=== PATIENT | female | born 1960 | race Caucasian/White ===

== ENCOUNTER 2019-12-11 12:50 | Outpatient (REF) | payer OTHER, SELFPAY ==
[2019-12-11 14:52] LABS: Alanine Aminotransferase 16 U/L (0-31); Albumin Level 4.1 g/dL (3.5-5.0); Alkaline Phosphatase 76 U/L (39-117); Aspartate Amino Transferase 15 U/L (5-31); Bilirubin Total 0.5 mg/dL (0.0-1.0); Blood Urea Nitrogen 15 mg/dL (9-16); Calcium 9.2 mg/dL (8.4-10.2); Estimated Glomerular Filt Rate 50; Glucose Random 74 mg/dL (60-115); Total Protein 6.2 g/dL (6.5-8.0)
[2019-12-11 15:02] LABS: Anion Gap 14 (12-20); Carbon Dioxide 23 mmol/L (22-29); Chloride 109 mmol/L (96-108); Potassium 4.2 mmol/l (3.3-5.1); Sodium 142 mmol/L (135-145)
== END 2019-12-11 12:51 | disposition home or self-care (01) ==
LOC: HO.LAB 12:50
PROVIDERS: PCP Internal Medicine; Visit Provider Internal Medicine
DX: I12.9 Hypertensive chronic kidney disease with stage 1 through stage 4 chronic kidney disease, or unspecified chronic kidney disease (principal); E78.00 Pure hypercholesterolemia, unspecified; F31.81 Bipolar II disorder; F17.200 Nicotine dependence, unspecified, uncomplicated
CPT/HCPCS: 36415; 80053

== ENCOUNTER 2020-02-28 07:30 | Day surgery (SDC) | payer OTHER, SELFPAY ==
[2020-02-21 13:20] VITALS: BMI 28.9
--- NOTE | 2020-02-26 13:16 | HO.ANESPROP2 ---
Documented by User: Sana Brannon 02/26/20 13:16 HPI - Anesthesia Eval Consult details Narrative: 60yo F for Colonoscopy PMFSH Past Medical History Medical History Asthma Chronic renal insufficiency Elevated cholesterol History of diverticulitis HTN (hypertension) Hx of malignant neoplasm of skin Hx-TIA (transient ischemic attack) Osteoarthritis Overactive bladder Smoker Surgical History Surgical History H/O LEEP Hx of colonoscopy Hx of hemorrhoidectomy Hx of tubal ligation Social History Social History Smoking Status: Current every day smoker Cigarettes Per Day: 4 Years Smoked: 48 Patient Given Instructions on How to Stop Smoking: Yes Date Education Initiated: 02/21/20 Use of substances other than those prescribed or required for medical reasons: No Advance Directives: No Advance Directives Information Provided: No Advance Directives on File: No Meds Allergies Allergy/AdvReac Type Severity Reaction Status Date / Time No Known Allergies Allergy Verified 02/21/20 13:13 [No Known Allergies*] Home Medications Medication Instructions Recorded Confirmed Type acetaminophen [Arthritis Pain 1 tab PO TID PRN 02/21/20 02/21/20 History Relief (acetam)] aripiprazole 1 tab PO DAILY 02/21/20 02/21/20 History atorvastatin 1 tab PO BEDTIME 02/21/20 02/21/20 History bisacodyl 2 tab PO DIRECTED 02/21/20 02/21/20 History bupropion HCl 1 tab PO BID 02/21/20 02/21/20 History cholecalciferol (vitamin D3) 1 tab PO DAILY 02/21/20 02/21/20 History fluticasone propionate 1 spray INTRANASAL BID 02/21/20 02/21/20 History lisinopril 1 tab PO DAILY 02/21/20 02/21/20 History polyethylene glycol 3350 PO 02/21/20 History tolterodine 1 cap PO DAILY 02/21/20 02/21/20 History Exam Exam Date and Time: February 26, 2020 1316 Height,Weight and Vital Signs: Height 5 ft 5 in Weight 78.925 kg Assessment and Plan Assessment Anesthesia Assessment: Chart Reviewed Documented by User: Kelly Martellashawn 02/28/20 08:05 [facility], [facility] Past Medical History Medical History Asthma Chronic renal insufficiency Elevated cholesterol History of diverticulitis HTN (hypertension) Hx of malignant neoplasm of skin Hx-TIA (transient ischemic attack) Osteoarthritis Overactive bladder Smoker Surgical History Surgical History H/O LEEP Hx of colonoscopy Hx of hemorrhoidectomy Hx of tubal ligation Social History Social History Smoking Status: Current every day smoker Cigarettes Per Day: 4 Years Smoked: 48 Patient Given Instructions on How to Stop Smoking: Yes Date Education Initiated: 02/21/20 Use of substances other than those prescribed or required for medical reasons: No Advance Directives: No Advance Directives Information Provided: No Advance Directives on File: No Meds Allergies Allergy/AdvReac Type Severity Reaction Status Date / Time No Known Allergies Allergy Verified 02/21/20 13:13 [No Known Allergies*] Home Medications Medication Instructions Recorded Confirmed Type acetaminophen [Arthritis Pain 1 tab PO TID PRN 02/21/20 02/21/20 History Relief (acetam)] aripiprazole 1 tab PO DAILY 02/21/20 02/21/20 History atorvastatin 1 tab PO BEDTIME 02/21/20 02/21/20 History bisacodyl 2 tab PO DIRECTED 02/21/20 02/21/20 History bupropion HCl 1 tab PO BID 02/21/20 02/21/20 History cholecalciferol (vitamin D3) 1 tab PO DAILY 02/21/20 02/21/20 History fluticasone propionate 1 spray INTRANASAL BID 02/21/20 02/21/20 History lisinopril 1 tab PO DAILY 02/21/20 02/21/20 History polyethylene glycol 3350 PO 02/21/20 History tolterodine 1 cap PO DAILY 02/21/20 02/21/20 History Exam Airway Mallampati Class: II (Crowns upper front) TM Dist: >3cm Neck ROM: Full Partial: Upper Heart: RrR Lungs: CTA BL Assessment and Plan Assessment Anesthesia Assessment: Anesthesia Plan Discussed and Chart Reviewed Final Anesthetic Review NPO: Yes ASA Class: II Final Preanesthetic Review: No Changes in Pt Med Stat and Consent Obtained/Reviewed Patient Risk: Intermediate Procedure Risk: Intermediate Anesthetic Plan Anesthetic Plan: MAC: Disposition: Standard PACU
[2020-02-28 08:02] VITALS: BP 117/71; PULSE 65; RESP 16; TEMP 36.3; O2SAT 100; BMI 28.9
[2020-02-28] MEDS: Lactated Ringers 1,000 ML 100 ML IVCONT (08:24)
[2020-02-28 09:41] VITALS: BP 119/65; PULSE 68; RESP 12; TEMP 36.9; O2SAT 97
--- NOTE | 2020-02-28 09:41 | PM.OP ---
Brief Operative Note Date of Service: 02/28/20 Pre-op diagnosis: Screening Post-op diagnosis: other (Colon polyps, Diverticulosis) Procedure: Colonoscopy to cecum and TI with snare polypectomy x 2 of Ileocecal Valve polyps--specimens were not recovered for pathology Surgeon: Bennie Thompson Anesthesia: MAC Estimated blood loss (mL): 2.0 Pathology: none sent Condition: stable Disposition: PACU
[2020-02-28 09:56] VITALS: BP 130/78; PULSE 67; RESP 16; O2SAT 100
[2020-02-28 10:10] VITALS: BP 121/87; PULSE 58; RESP 16; TEMP 36.9; O2SAT 100
--- NOTE | 2020-02-28 10:24 | HO.POSTANES ---
Post Anesthesia Evaluation Post Anesthesia Evaluation Vital Signs: Vital Signs Temp Pulse Resp BP Pulse Ox 02/28/20 10:10 98.5 F 58 16 121/87 100 02/28/20 09:56 67 16 130/78 100 02/28/20 09:41 98.5 F 68 12 119/65 97 02/28/20 08:02 97.3 F 65 16 117/71 100 Anesthesia: Monitored Mental Status: Awake Pain Control: Satisfactory Nausea/Vomiting: None Hydration: Adequate Anesthesia-Related Issues: No Anes. Related Issues
--- NOTE | 2020-02-28 10:25 | OP_ITS ---
SURGEON: Bennie Thompson MD INDICATIONS: The patient presents for followup of colorectal cancer screening and personal history of tubular adenoma of the colon. Full consent has been obtained from her for this, including risks of bleeding and perforation. PREOPERATIVE DIAGNOSIS: Colorectal cancer screening and personal history of tubular adenoma of the colon. POSTOPERATIVE DIAGNOSIS: Colorectal cancer screening and personal history of tubular adenoma of the colon, colon polyps, diverticulosis, and internal hemorrhoids. PROCEDURE PERFORMED: Colonoscopy to cecum and terminal ileum with snare polypectomy. ESTIMATED BLOOD LOSS: COMPLICATIONS: ANESTHESIA: Medication used, monitored anesthesia care. ASSISTANTS: SPECIMENS: DESCRIPTION OF PROCEDURE: The patient was placed in the left lateral decubitus position. The digital rectal exam revealed no abnormalities. The Olympus video pediatric colonoscope was entered into the rectum and advanced easily to the cecum. Once in the cecum, I did identify normal-appearing cecal pouch with normal-appearing appendiceal orifice. The terminal ileum was cannulated and appeared normal. The scope was withdrawn back in the colon. The entire cecum appeared normal. The ileocecal valve was well visualized. On the ileocecal valve were 2 grossly adenomatous polyps, each approximately 8 mm to 10 mm in diameter. These were both snared and removed completely, but then they were not recovered. The polypectomy sites appeared clean, without any sign of residual polyp nor bleeding. The scope was slowly withdrawn assessing all mucosal surfaces carefully. Preparation was excellent. I did not visualize any other polyps, colitis, nor angiodysplasia. There was a mild amount of sigmoid diverticulosis. In the rectum, scope was retroflexed visualizing internal hemorrhoids, but no other pathology. The rectal mucosa appeared normal. The scope was straightened and withdrawn from the patient. She tolerated the procedure well and was returned to the recovery area in stable condition. IMPRESSION: 1. Colon polyps, status post snare polypectomy. 2. Diverticulosis. 3. Internal hemorrhoids. PLAN: Given her previous history and the gross appearance of the polyps today, I would recommend a repeat colonoscopy in 5 years for further surveillance. She was advised not to use any aspirin or NSAIDs for 1 week. She will otherwise see me on a p.r.n. basis. MD GONZALEZ Underwood/RUSLAN / [id number]
== END 2020-02-28 10:35 | disposition home or self-care (01) ==
PROVIDERS: PCP Internal Medicine; Visit Provider Internal Medicine
PROC: 0DJD8ZZ Inspection of Lower Intestinal Tract, Via Natural or Artificial Opening Endoscopic (ICD-10-PCS; CPT 45378; principal; 2020-02-28 08:30)
DX: Z12.11 Encounter for screening for malignant neoplasm of colon (principal); Z86.010 Personal history of colon polyps; D12.0 Benign neoplasm of cecum; K57.30 Diverticulosis of large intestine without perforation or abscess without bleeding; K64.8 Other hemorrhoids; J45.909 Unspecified asthma, uncomplicated; I12.9 Hypertensive chronic kidney disease with stage 1 through stage 4 chronic kidney disease, or unspecified chronic kidney disease; F17.210 Nicotine dependence, cigarettes, uncomplicated; N18.9 Chronic kidney disease, unspecified; Z85.828 Personal history of other malignant neoplasm of skin; Z86.73 Personal history of transient ischemic attack (TIA), and cerebral infarction without residual deficits; Z79.899 Other long term (current) drug therapy
CPT/HCPCS: 45385

== ENCOUNTER 2020-03-28 08:50 | Outpatient (REF) | payer OTHER, SELFPAY ==
--- NOTE | 2020-03-28 | MM_ITS ---
EXAMINATION: MM SCREENING DIGITAL BREAST TOMOSYNTHESIS, BILATERAL CLINICAL INFORMATION: Screening. Asymptomatic. The lifetime risk of breast cancer based on the Tyrer-Cuzick Model is 12%. COMPARISON: Mammography: 01/12/2019, 12/22/2017, 11/24/2016, targeted ultrasound left breast 06/09/2011. TECHNIQUE: Digital breast tomosynthesis is performed in both the craniocaudal and mediolateral oblique views along with computer-aided detection (CAD). Synthesized 2D images are generated from the tomosynthesis. FINDINGS: The breasts are heterogeneously dense, which may obscure small masses (ACR BI-RADS breast composition Category c). Breast tissue composition borders on average fibroglandular. Fibrocystic changes outer left breast are decreased in 2017. Neither breast shows interval mass or architectural abnormality or interval abnormal calcifications. There are 2 biopsy clip markers 12:00 right breast. Diffuse bilateral punctate calcifications are again seen. The axilla and skin contours are unremarkable. No significant changes. MM/MM tomosynthesis screening BI IMPRESSION: No significant changes from prior exams. ASSESSMENT: BI-RADS 2: Benign RECOMMENDATION: Routine annual mammography screening. This patient's information was entered into a reminder system with a target due date for their next mammogram.
== END 2020-03-28 08:51 | disposition home or self-care (01) ==
LOC: HO.MAMMO 08:50
PROVIDERS: PCP Internal Medicine; Visit Provider Internal Medicine
DX: Z12.31 Encounter for screening mammogram for malignant neoplasm of breast (principal)
CPT/HCPCS: 77063; 77067

== ENCOUNTER 2021-04-04 14:26 | Outpatient (REF) | payer OTHER, SELFPAY ==
--- NOTE | ~2021-04-04 | MM_ITS ---
EXAMINATION: MM SCREENING DIGITAL BREAST TOMOSYNTHESIS, BILATERAL CLINICAL INFORMATION: Screening. Asymptomatic. The lifetime risk of breast cancer based on the Tyrer-Cuzick Model is 10%. COMPARISON: Mammography: 03/28/2020, 01/12/2019, 12/22/2017, 11/24/2016, 10/04/2015 TECHNIQUE: Digital breast tomosynthesis is performed in both the craniocaudal and mediolateral oblique views along with computer-aided detection (CAD). Synthesized 2D images are generated from the tomosynthesis. Additional exaggerated right CC view is provided. FINDINGS: The breasts are heterogeneously dense, which may obscure small masses (ACR BI-RADS breast composition Category c). Parenchymal pattern is similar to prior studies. Breast tissue composition borders on average fibroglandular. There is chronic fibrocystic change again seen with dominant nodularity mid upper outer left breast stable to decreased from prior exams. There are 2 biopsy clip markers posterior 12:00 right breast. Neither breast shows developing density or architectural abnormality. There are scattered bilateral punctate calcifications again seen. No significant changes. MM/MM tomosynthesis screening BI IMPRESSION: No significant changes from prior exams. ASSESSMENT: BI-RADS 2: Benign RECOMMENDATION: Routine annual mammography screening. This patient's information was entered into a reminder system with a target due date for their next mammogram.
== END 2021-04-04 14:27 | disposition home or self-care (01) ==
LOC: HO.MAMMO 14:26
PROVIDERS: PCP Internal Medicine; Visit Provider Internal Medicine
DX: Z12.31 Encounter for screening mammogram for malignant neoplasm of breast (principal)
CPT/HCPCS: 77063; 77067

== ENCOUNTER 2022-04-21 12:37 | Outpatient (REF) | payer OTHER, SELFPAY ==
--- NOTE | ~2022-04-21 | MM_ITS ---
EXAMINATION: MM SCREENING DIGITAL BREAST TOMOSYNTHESIS, BILATERAL CLINICAL INFORMATION: Screening. Asymptomatic. The lifetime risk of breast cancer based on the Tyrer-Cuzick Model is 11%. COMPARISON: Mammography: 04/04/2021, 03/28/2020, 01/12/2019, 12/22/2017 TECHNIQUE: Digital breast tomosynthesis is performed in both the craniocaudal and mediolateral oblique views along with computer-aided detection (CAD). Synthesized 2D images are generated from the tomosynthesis. FINDINGS: The breasts are heterogeneously dense, which may obscure small masses (ACR BI-RADS breast composition Category c). There are no significant masses, abnormal calcifications, or other abnormalities. Breast tissue composition borders on average fibroglandular. Fibrocystic changes outer left breast are decreased since 2018. There is no developing density or interval architectural abnormality. Again, scattered bilateral punctate calcifications are present predominantly upper outer quadrant similar in distribution and number to prior studies. No significant changes. MM/MM tomosynthesis screening BI IMPRESSION: No mammographic evidence of malignancy. ASSESSMENT: BI-RADS 2: Benign RECOMMENDATION: Routine annual mammography screening. This patient's information was entered into a reminder system with a target due date for their next mammogram.
== END 2022-04-21 12:38 | disposition home or self-care (01) ==
LOC: HO.MAMMO 12:37
PROVIDERS: PCP Internal Medicine; Visit Provider Internal Medicine
DX: Z12.31 Encounter for screening mammogram for malignant neoplasm of breast (principal)
CPT/HCPCS: 77063; 77067

== ENCOUNTER 2023-06-16 11:26 | Outpatient (REF) | payer OTHER, SELFPAY ==
[2023-06-16 14:38] LABS: MANUAL DIFF FLAG NO
[2023-06-16 14:45] LABS: Basophils Percent Auto 0.2 % (0-2); Eosinophils Absolute Auto 0.1 X10*3/uL (0.0-0.4); Eosinophils Percent Auto 0.8 % (0-4); Hematocrit 41.6 % (37.0-47.0); Hemoglobin 13.7 g/dl (12.0-16.0); Imm Gran Abs Auto 0.04 X10*3/uL (0.00-0.03); Imm Gran Pct Auto 0.4 % (0.0-0.4); Lymphocytes Absolute Auto 2.2 X10*3/uL (1.2-4.9); Lymphocytes Percent Auto 20.6 % (20-40); Mean Corpuscular HGB Conc 32.9 g/dl (31.0-35.0); Mean Corpuscular Hemoglobin 30.4 pg (27.0-33.0); Mean Corpuscular Volume 92.2 fL (80.0-98.0); Mean Platelet Volume 9.8 fL (9.4-12.3); Monocytes Absolute Auto 0.7 X10*3/uL (0.1-1.2); Monocytes Percent Auto 6.4 % (2-11); Neutrophils Absolute Auto 7.5 x10*3/uL (2.0-8.3); Neutrophils Percent Auto 71.6 % (45-73); Platelet Count 209 X10*3/uL (160-400); Red Blood Count 4.51 X10*6/uL (4.20-5.50); Red Cell Distribution Width 13.2 % (11.0-16.0); White Blood Count 10.4 X10*3/uL (4.8-10.8)
[2023-06-16 15:11] LABS: Alanine Aminotransferase 17 U/L (0-31); Albumin Level 4.1 g/dL (3.5-5.0); Alkaline Phosphatase 65 U/L (39-117); Anion Gap 12 (12-20); Aspartate Amino Transferase 14 U/L (5-31); Bilirubin Total 0.5 mg/dL (0.0-1.0); Blood Urea Nitrogen 9 mg/dL (9-16); Calcium 9.6 mg/dL (8.4-10.2); Carbon Dioxide 27 mmol/L (22-29); Chloride 106 mmol/L (96-108); Estimated Glomerular Filt Rate 47; Glucose Fasting 99 mg/dL (60-99); Sodium 141 mmol/L (135-145)
== END 2023-06-16 11:27 | disposition home or self-care (01) ==
LOC: HO.CHCLDS 11:26
PROVIDERS: Visit Provider Internal Medicine
DX: R10.32 Left lower quadrant pain (principal); K57.10 Diverticulosis of small intestine without perforation or abscess without bleeding
CPT/HCPCS: 36415; 80053; 85025

== ENCOUNTER 2023-06-24 14:19 | Outpatient (REF) | payer OTHER, SELFPAY ==
--- NOTE | ~2023-06-24 | MM_ITS ---
EXAMINATION: MM SCREENING DIGITAL BREAST TOMOSYNTHESIS, BILATERAL CLINICAL INFORMATION: Screening. Asymptomatic. COMPARISON: Mammography: This study is compared with prior exams dating back to 2019. TECHNIQUE: Digital breast tomosynthesis is performed in both the craniocaudal and mediolateral oblique views along with computer-aided detection (CAD). Synthesized 2D images are generated from the tomosynthesis. FINDINGS: The breasts are heterogeneously dense, which may obscure small masses (ACR BI-RADS breast composition Category c). There are no significant masses, abnormal calcifications, or other abnormalities. There is unchanged nodularity in the superior aspect the left breast with mammographic findings were shown to correspond to a benign cyst on ultrasound from the remote past. There are bilateral benign calcifications. There are 2 tissue markers in the superior aspect of the right breast from prior benign percutaneous biopsies. MM/MM tomosynthesis screening BI IMPRESSION: No mammographic evidence of malignancy. ASSESSMENT: BI-RADS BI-RADS 2 - Benign Findings RECOMMENDATION: Routine annual mammography screening. 1 year F/U This examination should not preclude the clinical evaluation of a suspicious palpable abnormality. This patient's information was entered into a reminder system with a target due date for their next mammogram.
== END 2023-06-24 14:20 | disposition home or self-care (01) ==
LOC: HO.MAMMO 14:19
PROVIDERS: PCP Internal Medicine; Visit Provider Internal Medicine
DX: Z12.31 Encounter for screening mammogram for malignant neoplasm of breast (principal)
CPT/HCPCS: 77063; 77067

== ENCOUNTER → 2023-06-24 14:45 | Outpatient (BNV) | payer OTHER, SELFPAY | PROVIDERS: PCP Internal Medicine; Visit Provider Radiology Diagnostic Radiology | DX: Z12.31 Encounter for screening mammogram for malignant neoplasm of breast (principal) | CPT/HCPCS: 77063; 77067 ==

== ENCOUNTER 2024-01-24 08:56 | Outpatient (REF) | payer OTHER, SELFPAY ==
[2024-01-24 09:09] LABS: MANUAL DIFF FLAG NO
[2024-01-24 09:38] LABS: Basophils Absolute Auto 0.1 X10*3/uL (0.0-0.2); Basophils Percent Auto 0.8 % (0-2); Eosinophils Absolute Auto 0.2 X10*3/uL (0.0-0.4); Eosinophils Percent Auto 2.4 % (0-4); Hematocrit 41.4 % (37.0-47.0); Hemoglobin 13.6 g/dl (12.0-16.0); Imm Gran Abs Auto 0.01 X10*3/uL (0.00-0.03); Imm Gran Pct Auto 0.2 % (0.0-0.4); Lymphocytes Absolute Auto 2.4 X10*3/uL (1.2-4.9); Lymphocytes Percent Auto 37.9 % (20-40); Mean Corpuscular HGB Conc 32.9 g/dl (31.0-35.0); Mean Corpuscular Hemoglobin 30.4 pg (27.0-33.0); Mean Corpuscular Volume 92.4 fL (80.0-98.0); Mean Platelet Volume 9.5 fL (9.4-12.3); Monocytes Absolute Auto 0.4 X10*3/uL (0.1-1.2); Monocytes Percent Auto 6.4 % (2-11); Neutrophils Absolute Auto 3.3 x10*3/uL (2.0-8.3); Neutrophils Percent Auto 52.3 % (45-73); Platelet Count 190 X10*3/uL (160-400); Red Blood Count 4.48 X10*6/uL (4.20-5.50); Red Cell Distribution Width 12.7 % (11.0-16.0); White Blood Count 6.2 X10*3/uL (4.8-10.8)
[2024-01-24 10:27] LABS: Alanine Aminotransferase 33 U/L (0-31); Albumin Level 4.2 g/dL (3.5-5.0); Alkaline Phosphatase 63 U/L (39-117); Anion Gap 10 (12-20); Aspartate Amino Transferase 27 U/L (5-31); Bilirubin Total 0.4 mg/dL (0.0-1.0); Blood Urea Nitrogen 20 mg/dL (9-16); Calcium 9.8 mg/dL (8.4-10.2); Carbon Dioxide 28 mmol/L (22-29); Chloride 108 mmol/L (96-108); Cholesterol 167 mg/dL (<200); Estimated Glomerular Filt Rate 32; Glucose Random 92 mg/dL (60-115); HDL Cholesterol 51 mg/dL (>40); LDL Cholesterol Calculated 100 mg/dL (<100); Potassium 4.2 mmol/L (3.3-5.1); Sodium 142 mmol/L (135-145); Total Protein 6.6 g/dL (6.5-8.0); Triglycerides 82 mg/dL (<150)
== END 2024-01-24 08:57 | disposition home or self-care (01) ==
LOC: HO.LAB 08:56
PROVIDERS: PCP Internal Medicine; Visit Provider Internal Medicine
DX: E78.00 Pure hypercholesterolemia, unspecified (principal); F17.201 Nicotine dependence, unspecified, in remission; G25.0 Essential tremor; I10 Essential (primary) hypertension; Z68.31 Body mass index [BMI] 31.0-31.9, adult
CPT/HCPCS: 36415; 80053; 80061; 85025

== ENCOUNTER 2024-07-13 14:24 | Outpatient (REF) | payer OTHER, SELFPAY ==
--- OUTSIDE RECORDS SUMMARY | 2024-07-13 15:14 | XMS_ITS | Encounter Summary ---
Author Organization [facility] Address [address] [facility] [address] [place] [address] Phone Care Team Providers Care Stitchdowns Toe Former Name Role Phone Caridad Monson MD Primary Care Provider Reason for Visit * Reason Comments Med Refill Encounter Details Date Type Department Care Team (Late st Contact Info) Description 07/03/2024 Refill [facility] [address] [facility] [address] [place] [phone] Krishna Perla MD [address] [facility] [address] [place] [phone] Social History Tobacco Use Types Packs/Day Years Used Date Smoking Tobacco: Every Day Cigarettes Smokeless Tobacco: Never Alcohol Use Standard Drinks/Week Comments No 0 (1 standard drink = 0.6 oz pur e alcohol) Comments Unknown Sex and Gender Information Value Date Recorded Sex Assigned at Not on file Legal Sex Female 4:47 PM EST Gender Identity Not on file Sexual Orientation Not on file documented as of this encounter Plan of Treatment Not on file documented as of this encounter Visit Diagnoses Not on filedocumented in this encounter Care Teams Stitchdowns Toe Former Relationship Specialty Start Date End Date Caridad Monson MD [facility] [address] PCP - General 03/18/20 documented as of this encounter
--- OUTSIDE RECORDS SUMMARY | 2024-07-13 15:14 | XMS_ITS | Clinical Summary ---
Author Organization [facility] Address [address] [address] Phone Care Team Providers Care Stunt Driver Name Role Phone Caridad Monson MD Primary Care Provider Allergies Active Allergy Reactions Criticality Noted Date Comments Nsaids Swelling 12/17/2021 Medications acetaminophen (TYLENOL 8 HOUR) 650 MG 8 hr tablet Take 1 tablet by mouth 3 (three) times a day Active buPROPion SR (WELLBUTRIN SR) 200 MG 12 hr tablet Take 1 tablet by mouth 2 (two) times a day Active fluticasone (FLONASE) 50 MCG/ACT nasal spray as directed Active tolterodine LA (DETROL LA) 4 MG 24 hr capsule Take 1 capsule by mouth 1 (one) time each day Active lisinopril (PRINIVIL,ZESTR IL) 30 MG tablet Take 1 tablet (30 mg total) by mouth 1 (one) time each day 90 tablet 3 04/24/2020 Active FLUoxetine (PROzac) 10 MG capsule TAKE ONE CAPSULE BY MOUTH ONCE DAILY 12/12/2020 Active rosuvastatin (CRESTOR) 40 MG tablet TAKE ONE TABLET BY MOUTH EVERY NIGHT BEDTIME 01/08/2021 Active ARIPiprazole (ABILIFY) 20 MG tablet Take 20 mg by mouth 1 (one) time each day 01/08/2021 Active clonazePAM (KlonoPIN) 1 MG tablet Take 1 mg by mouth 1 (one) time each day if needed for anxiety Active propranolol LA (INDERAL LA) 120 MG 24 hr capsule Take 120 mg by mouth 1 (one) time each day 06/18/2022 Active cholecalciferol (VITAMIN D-3) 25 MCG (1000 UT) tablet TAKE ONE TABLET EVERY MORNING 90 tablet 3 07/31/2023 Active Active Problems Problem Noted Date Diagnosed Date Overweight 08/21/2020 Bipolar disorder, not otherwise specified 2020 History of malignant melanoma of the skin 2020 Stage 3b chronic kidney disease 04/24/2020 Hypertensive chronic kidney disease, malignant, with chronic kidney disease stage I through stage IV, or unspecified 04/24/2020 Hypertension 04/24/2020 Vitamin D deficiency, not otherwise specified Resolved Problems Problem Noted Date Diagnosed Date Resolved Date Hypertensive heart disease w ithout heart failure 04/24/2020 08/21/2020 Encounters Date Type Department Care Team Description 07/03/2024 Refill [facility] [address] [facility] [address] [place] [address] Krishna Perla MD from Last 3 Months Immunizations Immunization Administration Dates Next Due Influenza Split High Dose Preservative Free IM 1 Influenza TIV (IM) 12/12/2018 Family History Medical History Relation Comments Hypertension Father Kidney disease Father ESRD- dialysis - htn Cancer Mother breast Diabetes Mother Heart disease Mother cardiac stents Diabetes Sibling 1 Hypertension Sibling 2 Relation Status Comments Father Alive Mother Sibling 1 Sibling 2 Social History Tobacco Use Types Packs/Day Years [...] on file Sexual Orientation Not on file Last Filed Vital Signs Vital Sign Reading Time Taken Comments Blood Pressure 120/76 08/27/2022 10:42 AM EDT Pulse 64 08/27/2022 10:42 AM EDT Temperature - - Respiratory Rate - - Oxygen Saturation 96% 08/27/2022 10:42 AM EDT Inhaled Oxygen Concentration - - Weight 85.1 kg (187 lb 9.6 oz) 08/27/2022 10:42 AM EDT Height 166.4 cm (5' 5.5 ) 08/27/2022 10:42 AM ED T Body Mass Index 30.74 08/27/2022 10:42 AM EDT Plan of Treatment Health Maintenance Due Date Last Done Comments Breast Cancer Screening 1960 Pneumococcal Vaccine: 50+ Years (1 of 2 - PCV) 01/14/1979 Colorectal Cancer Screening: Annual FOBT 01/14/2009 Colorectal Cancer Screening: Colonoscopy 01/14/2009 Colorectal Cancer Screening: Sigmoidoscopy 01/14/2009 Influenza Vaccine (Season Ended) 2024 12/12/2018, 12/09/2016 Hepatitis B Vaccine Aged Out No longe r eligible based on patient's age to complete this topic Insurance ([id number]) ([id number]) Care Teams Stunt Driver Relationship Specialty Start Date End Date Caridad Monson MD [address] [place] [address] PCP - General 03/18/20
--- OUTSIDE RECORDS SUMMARY | 2024-07-13 15:14 | XMS_ITS | Patient Health Record ---
Author Organization [facility] Address [address] [place] [phone] Care Team Providers Care Laundry Operator Name Role Phone Caridad Monson Primary Care Provider Unavailab Bennie Boyer Unavailable [phone] Reason For Referral No Information Medications Medication SIG (Take, Route, Frequency, Duration) Notes Start Date End Date Status HM Arthritis Pain Relief Active Tylenol PRN Active Fluticasone Propionate Active Tolterodine Tartrate ER Active Vitamin D3 Active MiraLax (colon prep) 8.3 ounce (238) grams mixed with Gatorade or Crystal Light orally begin at 5:00 p.m. the day before the procedure for 1 day 02/14/2020 Active Dulcolax (colon prep) 5 MG take at 3:00 p.m and 7:00p.m. Orally two tablets twice a day for one day for 1 day 02/14/2020 Active Abilify 15 MG 1 tablet Orally Once a day Active Atorvastatin Calcium 40 MG 1 tablet Oral ly Once a day Active Wellbutrin SR 200 MG 1 tablet Orally Twi ce a day Active Lisinopril 10 MG 1 tablet Orally Once a day Active Immunizations Vaccine Route Administration Date Status Comme nts Influenza Unknown 01/10/2020 Administered Social History Tobacco Use: Social History Observation Description Date Details (start date - stop date) Current Smoker NA - NA Tobacco Use/Smoking Question Answer Notes Patient is a current smoker How often do you smoke cigarettes? every day How many cigarettes a day do you smoke? 6-10 How soon after you wake up do you smoke your fir st cigarette? after 60 minutes Are you interested in quitting? Not ready to rain t Alcohol Screen Question Answer Notes Did you have a drink containing alcohol in the p ast year? No Points 0 Interpretation Negative Section Notes: Smoker; no sig. alcohol Smoker; no sig. alcohol Problems Problem Type SNOMED Code ICD Code Onset Dates Problem Status W/U Status Risk Notes Problem Screening for malignant neoplasm of colon (428529134) Encounter for screening for malignant neoplasm of colon (Z12.11) Active confirmed Problem History of adenomatous polyp of colon (568729613) History of adenomatous polyp of colon (Z86.010) Active confirmed Problem Preprocedural examination (685065840809166) Preprocedural examination (Z01.818) Active confirmed Plan Of Treatment Future Test Test Name Order Date COLONOSCOPY 03/22/2014 COLONOSCOPY 02/14/2020 Insurance Providers Payer Name Payer Address Payer Phone Subscriber Number Group Number Insured Name Patient Relationship to Insured Coverage Start Date Coverage End Date [facility] [address] [place] [address] [id number] ASHOK MARTINEZ Self - patient is the insured MEDICARE OF [place] [address] [place] [address] [id number] ASHOK MARTINEZ Self - patient is the insured MEDICAID OF [facility] [address] [place] [address] [id number] ASHOK MARTINEZ Self - patient is the insured Medical (General) History Medical History History ICD Code Colonoscopy in 2002 with hyp erplastic polyps, and a Colonoscopy in 08/2008 was negative Depression HTN Asthma-allergy related Hyperlipidemia Renal insufficiency due to HTN Denies [place],DM,CVA Colonoscopy 12/2014 with 2 tubular adeno mas removed Diverticulitis-required inpatient antibi otics Surgical History Surgery Date(Month/Year) Tubal Ligation Hemorrhoid surgery Uterine ablation Melanoma removed from left thigh in 2011 Skin cancers on face LEEP procedure for cervical dysplasia
== END 2024-07-13 14:25 | disposition home or self-care (01) ==
LOC: HO.MAMMO 14:24
PROVIDERS: PCP Internal Medicine; Visit Provider Internal Medicine
DX: Z12.31 Encounter for screening mammogram for malignant neoplasm of breast (principal)
CPT/HCPCS: 77063; 77067

== ENCOUNTER → 2024-07-13 14:30 | Outpatient (BNV) | payer OTHER, SELFPAY | PROVIDERS: PCP Internal Medicine; Visit Provider Internal Medicine | DX: Z12.31 Encounter for screening mammogram for malignant neoplasm of breast (principal) | CPT/HCPCS: 77063; 77067 ==

== ENCOUNTER 2024-08-07 09:23 | Outpatient (REF) | payer OTHER, SELFPAY ==
--- OUTSIDE RECORDS SUMMARY | 2024-08-07 10:05 | XMS_ITS | Encounter Summary ---
Author Organization [facility] Address [address] [facility] [address] [place] [address] Phone Care Team Providers Care Mental Health Counselor Name Role Phone Caridad Monson MD Primary Care Provider Encounter Details Date Type Department Care Team (Late st Contact Info) Description 08/02/2024 Office Communication [facility] [address] [facility] [address] [place] [address] Krishna Perla MD [address] [phone] Social History Tobacco Use Types Packs/Day Years [...] on file documented as of this encounter Miscellaneous Notes * Telephone Encounter - Krishna Perla MD - 08/02/2024 9:09 PM EDT Needs f/u documented in this encounter Plan of Treatment Not on file documented as of this encounter Visit Diagnoses Not on filedocumented in this encounter Care Teams Mental Health Counselor Relationship Specialty Start Date End Date Caridad Monson MD [address] [place] [address] [place] [address] PCP - General 03/18/20 documented as of this encounter
[2024-08-07 14:53] LABS: Alanine Aminotransferase 16 U/L (0-31); Albumin Level 3.9 g/dL (3.5-5.0); Alkaline Phosphatase 63 U/L (39-117); Anion Gap 11 (12-20); Aspartate Amino Transferase 20 U/L (5-31); Bilirubin Total 0.3 mg/dL (0.0-1.0); Blood Urea Nitrogen 16 mg/dL (9-16); Calcium 9.1 mg/dL (8.4-10.2); Carbon Dioxide 27 mmol/L (22-29); Chloride 110 mmol/L (96-108); Estimated Glomerular Filt Rate 39; Glucose Fasting 82 mg/dL (60-99); Sodium 144 mmol/L (135-145); Total Protein 6.2 g/dL (6.5-8.0)
== END 2024-08-07 09:24 | disposition home or self-care (01) ==
LOC: HO.CHCLDS 09:23
PROVIDERS: PCP Internal Medicine; Visit Provider Internal Medicine
DX: E78.00 Pure hypercholesterolemia, unspecified (principal); F17.201 Nicotine dependence, unspecified, in remission; G25.0 Essential tremor; I12.9 Hypertensive chronic kidney disease with stage 1 through stage 4 chronic kidney disease, or unspecified chronic kidney disease; Z86.0101 Personal history of adenomatous and serrated colon polyps
CPT/HCPCS: 36415; 80053